=== PATIENT | male | born 1970 | race Two or more races ===

== ENCOUNTER 2018-05-09 14:16 | Emergency (ER) | payer MEDICAID ==
[~2018-05-09] VITALS: Ht 172.7 cm; Wt 95.3 kg
[2018-05-09] MEDS ORDERED: HYDROcodone-ACET 10/325MG TAB PO ONE (15:15)
[2018-05-09 15:57] VITALS: BP 135/69
== END 2018-05-09 16:05 | disposition home or self-care (01) ==
LOC: ER 14:16
DX: S43.101A Unspecified dislocation of right acromioclavicular joint, initial encounter (principal); W11.XXXA Fall on and from ladder, initial encounter; Y93.89 Activity, other specified; Y99.8 Other external cause status; Y92.89 Other specified places as the place of occurrence of the external cause
CPT/HCPCS: 23650; 73030